=== PATIENT | female | born 1970 | race Caucasian/White ===

== ENCOUNTER 2017-04-27 05:48 | Outpatient (CLI) | payer BC ==
[~2017-04-27] VITALS: Ht 167.6 cm; Wt 86.2 kg
[~2017-04-27 05:48] MED LIST: AMIT10TA6 PO; HYDR-3454 PO; NADO40TA PO; SULF-222 PO; TPR25T PO; ZOLM2.5T5 PO
[2017-04-27] MEDS ORDERED: TPR25T PO (11:50)
[2017-04-27] MEDS ORDERED: ZOLM2.5T7 PO (11:50)
[2017-04-27] MEDS ORDERED: UBID100C17 PO (11:50)
[2017-04-27] MEDS ORDERED: TRAN650T5 PO (11:50)
[2017-04-27] MEDS ORDERED: NADO20TA PO (11:50)
[2017-04-27] MEDS ORDERED: PRAV20TA3 PO (11:50)
== END 2017-04-27 13:29 ==
LOC: PREOP 05:48
PROVIDERS: ATTEND Surgery
DX: Z01.818 Encounter for other preprocedural examination (principal); K62.5 Hemorrhage of anus and rectum

== ENCOUNTER 2021-11-20 07:42 | Outpatient (CLI) | payer BC ==
[~2021-11-20] VITALS: Ht 167.6 cm; Wt 92.1 kg
[~2021-11-20 07:42] MED LIST changes: +NADO20TA3 PO; +PRAV20TA3 PO; +TRAN650T5 PO; +UBID100C17 PO; +ZOLM2.5T31 PO
== END 2021-11-20 09:36 | disposition home or self-care (01) ==
LOC: PREOP 07:42
PROVIDERS: ATTEND Surgery
DX: Z01.818 Encounter for other preprocedural examination (principal)

== ENCOUNTER 2021-12-04 10:48 | Day surgery (SDC) | payer BC ==
[~2021-12-04] VITALS: Ht 168 cm; Wt 92.1 kg
[2021-12-04 11:00] VITALS: BP 128/93
[2021-12-04] MEDS ORDERED: LACTATED RINGERS 1,000 ML IV STA (11:01)
[2021-12-04] MEDS ORDERED: LACTATED RINGERS 1,000 ML IV ONE (11:05)
--- NOTE | 2021-12-04 11:09 | Progress Note-Pre Operative ---
Pre-Operative Progress Note H&P Reviewed The H&P was reviewed, patient examined and no changes noted. Date Seen by Provider: Dec 04, 2021 Time Seen by Provider: 10:30 Date H&P Reviewed: Dec 04, 2021 Time H&P Reviewed: 10:30 Pre-Operative Diagnosis: screening, hx colon polyp PATRICK FLANAGAN MD Dec 04, 2021 11:09
--- NOTE | 2021-12-04 11:10 | Discharge Inst-Surgical ---
D/C Lap Instructions-MASHA Follow Up Activity as tolerated High Fiber Diet 25g or more per day Avoid Alcohol, Caffeine, Spicy [place] and Acid foods. Drink 64 fluid oz or more of fluids per day. Symptoms to Report: Fever over 101 degree F, Nausea/Vomiting If any problems/questions: Contact your physician or go to Emergency Room PATRICK FLANAGAN MD Dec 04, 2021 11:10
[2021-12-04] MEDS ORDERED: ONDANSETRON 4 MG/2 ML (SDV) Z0FRAN IVP PRN (11:15)
[2021-12-04] MEDS ORDERED: LIDOCAINE JELLY 2% 6 ML SYRINGE MM PRN (11:15)
[2021-12-04] MEDS ORDERED: ONDANSETRON 4 MG (ZOFRAN) ORAL DISSOLVE TAB PO PRN (11:15)
[2021-12-04] MEDS ORDERED: PROPOFOL INJECTION 50 ML IV ONE (12:56)
[2021-12-04] MEDS ORDERED: MIDAZOLAM 2 MG/2 ML (VERSED) VIAL ONE (12:56)
[2021-12-04 13:30] VITALS: BP 115/56
[2021-12-04 13:35] VITALS: BP 104/57
--- NOTE | 2021-12-04 13:38 | Progress Note-Post Operative ---
Post-Operative Progess Note Surgeon (s)/Scale Model Maker (s) Surgeon PATRICK FLANAGAN MD Scale Model Maker: none Pre-Operative Diagnosis screening, hx colon polyp Post-Operative Diagnosis mild chronic stage 2 ext and int hemorrhoids. Procedure & Operative Findings Date of Procedure 12/04/21 Procedure Performed/Findings colonoscopy Anesthesia Type mac Estimated Blood Loss Estimated blood loss (mL): minimal Specimens/Packing Specimens Removed none PATRICK FLANAGAN MD Dec 04, 2021 13:38
[2021-12-04 13:45] VITALS: BP 105/56
--- NOTE | 2021-12-04 13:47 | Anesthesia-General Post-Op ---
MAC Patient Condition Mental Status/LOC: Same as Preop Cardiovascular: Satisfactory Nausea/Vomiting: Absent Respiratory: Satisfactory Pain: Controlled Complications: Absent Post Op Complications Complications None Follow Up Care/Instructions Patient Instructions None needed. Anesthesiology Discharge Order Discharge Order Patient is doing well, no complaints, stable vital signs, no apparent adverse anesthesia problems. No complications reported per nursing. CARLY ST CRNA Dec 04, 2021 13:47
[2021-12-04 14:20] VITALS: BP 118/81
[2021-12-04 14:35] VITALS: BP 118/81
--- NOTE | 2021-12-04 22:13 | OPERATIVE REPORT ---
DATE OF SERVICE: 12/04/2021 ATTENDING PRIMARY CARE PHYSICIAN: Darlene Baer MD PREOPERATIVE DIAGNOSIS: Screening colonoscopy with history of previous colon polyps. POSTOPERATIVE DIAGNOSIS: Mild chronic stage II external and internal hemorrhoids. PROCEDURE: Colonoscopy. SURGEON: Patrick Flanagan MD ANESTHESIA: Monitored anesthesia care. ESTIMATED BLOOD LOSS: Minimal. FINDINGS: Mild chronic stage II external and internal hemorrhoids. DISPOSITION: The patient tolerated the procedure well. INDICATIONS: The patient is a 51-year-old female referred over to us for screening colonoscopy. She states that she did have her first colonoscopy approximately 5 years ago and she states that she did have polyps identified and removed and found to be benign. However, is unsure what type of polyps they were. She does not report any major issues with diarrhea nor constipation as well as no red blood per rectum nor any dark tarry stools. She also does not report any family history of colon cancer. DESCRIPTION OF PROCEDURE: The patient was brought to the endoscopy suite, laid in the left lateral decubitus position. After adequate IV pain and sedative medications and monitored anesthesia care, a digital rectal examination was performed, which revealed chronic stage II external and internal hemorrhoids, not actively edematous nor inflamed and no bleeding. Normal sphincter tone was felt and there were no palpable masses. The endoscope was then intubated and anus and rectum gently insufflated. The endoscope was then advanced through the valves of [place] of the rectum with no polyps or any neoplasms identified. Through the sigmoid colon, no diverticulosis identified. The endoscope was then advanced through the remainder of the descending, transverse and ascending colon to the cecum, which were normal. There were no polyps or any neoplasms identified throughout the colon or rectum. The endoscope was then slowly withdrawn while taking a second look and suctioning of residual air with no additional findings. The patient tolerated the procedure well. We will recommend medical management with a high-fiber diet with a fiber supplement, which should equal or exceed 25 grams daily to promote soft stools on a daily basis. If she is asymptomatic, she does not need another colonoscopy for another 10 years. Job ID: [id number] DocumentID: [id number] Dictated Date: 12/04/2021 13:34:31 [employer] Date: 12/04/2021 22:12:34 Dictated By: PATRICK FLANAGAN MD
== END 2021-12-04 14:35 | disposition home or self-care (01) ==
LOC: ENDO 10:48
PROVIDERS: ATTEND Surgery
DX: Z12.11 Encounter for screening for malignant neoplasm of colon (principal); K64.4 Residual hemorrhoidal skin tags; K64.8 Other hemorrhoids; Z86.010 Personal history of colon polyps
CPT/HCPCS: 84703

== ENCOUNTER → 2022-11-13 | Outpatient (CLI) | payer BC, OTHER ==
--- NOTE | 2022-11-13 10:30 | Diagnostic Imaging Report ---
EXAMINATION: Left knee radiographs, 3 views. COMPARISON: None. HISTORY: 52-year-old female, left knee pain. FINDINGS: There is no acute fracture. There is no knee joint effusion. The joint spaces are well preserved. IMPRESSION: 1. Unremarkable radiographs of the left knee. Dictated by: Dictated on workstation # [id number]
== END ==
LOC: RAD 09:48
PROVIDERS: ATTEND Family Medicine
DX: M25.562 Pain in left knee (principal)
CPT/HCPCS: 73562